=== PATIENT | male | born 1970 | race Caucasian/White ===

== ENCOUNTER → 2018-10-25 | Outpatient (CLI) | payer BC ==
[~2018-10-25] MED LIST: IBUP800T37 PO; LISI-355 PO; NIT4 PO; ONDA4TAB PO
--- NOTE | 2018-10-25 12:00 | RADIOLOGY IMAGING REPORT ---
FACILITY: [facility] - [place] PATIENT NAME: Erwin French : 1970 MR: [id number] V: [id number] EXAM DATE: ORDERING PHYSICIAN: MARIN PITTS TECHNOLOGIST: Location: [facility] - [place] Patient: Erwin French : 1970 Visit/Account:[id number] Date of Sevice: 10/25/2018 LIVER HISTORY: Elevated LFTs COMPARISON: None. FINDINGS: Gallbladder: Unremarkable; no stones or sludge. Liver: Liver appears very heterogeneous. In the left lobe there is a slightly irregular 1.9 x 1.3 x 1.9 cm hypoechoic nodule Common duct: Normal, 4.9 mm diameter. Pancreas: Partially obscured by bowel, visualized aspects unremarkable. Right kidney: There is a mild lobular contour to the right kidney although no evidence of hydronephro sis. The right kidney measures 11.2 cm in length Upper abdominal aorta and IVC: Patent. Ascites: None visualized. IMPRESSION: The liver appears very heterogeneous. There is an irregular hypoechoic mass measuring 1.9 cm in diam eter and the left lobe. Further evaluation with CT or MR of the liver with and without contrast sun mmended Report Dictated By: Andree Cox MD at 10/25/2018 10:28 AM Report E-Signed By: Andree Cox MD at 10/25/2018 11:57 AM WSN:[id number]
== END ==
LOC: US 02:24
PROVIDERS: ATTEND Physician Assistant
DX: R94.5 Abnormal results of liver function studies (principal); R16.0 Hepatomegaly, not elsewhere classified
CPT/HCPCS: 76705

== ENCOUNTER → 2018-11-01 | Outpatient (CLI) | payer BC ==
[~2018-11-01] MED LIST changes: +GADOBENATE 529MG/1ML 15ML VIAL IVP ONE; +NS(*) 0.9% 50 ML BAG 50 ML ONE
--- NOTE | 2018-11-01 17:35 | RADIOLOGY IMAGING REPORT ---
FACILITY: [facility] - [place] PATIENT NAME: Erwin French : 1970 MR: [id number] V: [id number] EXAM DATE: ORDERING PHYSICIAN: MARIN PITTS TECHNOLOGIST: Location: [facility] - [place] Patient: Erwin French : 1970 Visit/Account:[id number] Date of Sevice: 11/01/2018 ABDOMEN W W/O CONTRAST HISTORY: Abnormal ultrasound. Hepatic mass. ADDITIONAL HISTORY: None. TECHNIQUE: Multiplanar multisequence magnetic resonance imaging of the abdomen without and with intr avenous contrast. CONTRAST: 20 cc of MultiHance COMPARISON: Abdominal ultrasound 10/25/2018 FINDINGS: Liver: Diffuse hepatic steatosis with mild areas of fatty sparing. There are 7 liver lesions measurin g up to 1.5 cm. Several of these lesions do not enhance and are consistent with simple cysts. 3 of th e lesions enhance (series 17 image 25, 38) and are indeterminate. Gallbladder and bile ducts: Negative. The common bile duct measures 4 mm. Spleen: Negative. Adrenal glands: Negative. Pancreas: Negative. Kidneys: 1.8 x 1.2 cm left renal cyst. No hydronephrosis. Vessels: Normal Bowel/peritoneum/mesentery: Negative Lymph nodes: Negative Bones/soft tissues: Negative Visualized lung bases: Negative Visualized pelvis: Negative Other findings: None significant IMPRESSION: 1. Diffuse hepatic steatosis with mild areas of fatty sparing. There are 7 liver lesions measuring up to 1.5 cm. Many of these lesions are simple cysts. 3 of these lesions enhance although enhancement p attern is difficult to classify. These could be hemangiomas although MRI features are nonspecific. Wi thout a history of malignancy these lesions are likely benign. Consider follow-up in 6 months if ther e is high clinical concern. Report Dictated By: Celso Grant MD at 11/01/2018 5:21 PM Report E-Signed By: Celso Grant MD at 11/01/2018 5:30 PM WSN:[id number]
== END ==
LOC: MRI 01:26
PROVIDERS: ATTEND Physician Assistant
DX: D37.6 Neoplasm of uncertain behavior of liver, gallbladder and bile ducts (principal); K76.0 Fatty (change of) liver, not elsewhere classified
CPT/HCPCS: 74183; A9577; J7050